=== PATIENT | male | born 1985 ===

== ENCOUNTER 2017-02-23 23:01 | Emergency (ER) | payer OTHER ==
[2017-02-23 23:29] LABS: #Eosinphils 0.2 thou/uL (0.0-0.7); #Lymphocytes 0.8 thou/uL (1.20-3.40); #Monocytes 0.9 thou/uL (0.11-0.59); #Neutrophils 8.1 thou/uL (1.40-6.50); %Basophils 0.5 % (0.0-1.0); %Lymphocytes 8.2 % (21.0-51.0); %Monocytes 8.9 % (0.0-10.0); %Neutrophils 80.4 % (42.0-75.0); Hemoglobin 9.7 g/dL (14.0-18.0); Mean Corpuscular HGB CONC 34.7 g/dL (32.0-36.0); Mean Corpuscular Hemoglobin 30.8 pg (27.0-31.0); Mean Corpuscular Volume 88.8 fl (80.0-94.0); Platelet Count 207 thou/uL (130-400); RBC Distribution Width 10.4 % (11.5-14.5); Red Blood Cell (RBC) Count 3.14 mill/uL (4.70-6.10); White Blood Cell (WBC) Count 10.1 thou/uL (4.8-10.8)
[2017-02-23] MEDS ORDERED: Acetaminophen 500 MG TAB ONE (23:35)
--- NOTE | 2017-02-23 23:35 | CT ---
HEAD CT WITHOUT CONTRAST 02/23/17 COMPARISON: None. HISTORY: Syncope and hypoglycemia. TECHNIQUE: Serial axial CT imaging at 5 mm intervals from vertex through skull base without contrast. FINDINGS: There is a focal area of soft tissue swelling in the left paranasal region and left supraorbital reg ion. There is no intracranial hemorrhage, midline shift, mass effect, or ventricular enlargement. Th e imaged paranasal sinuses and mastoid air cells are well aerated. There is no displaced calvarial f racture. IMPRESSION: Soft tissue swelling anteriorly. No intracranial hemorrhage or displaced calvarial fracture. POS: [facility]
[2017-02-23 23:43] LABS: ALT (SGPT) 45 U/L (8-55); AST (SGOT) 31 U/L (5-34); Albumin 3.3 g/dL (3.5-5.0); Alkaline Phosphatase 81 U/L (40-150); Anion Gap 16 mmol/L (10-20); BUN (Urea Nitrogen) 48 mg/dL (8.9-20.6); Bilirubin, Total 0.2 mg/dL (0.2-1.2); Calc. Creatinine Clearance 0 mL/min (70-130); Calcium 9.1 mg/dL (7.8-10.44); Carbon Dioxide 24 mmol/L (22-29); Chloride 106 mmol/L (98-107); Estimated GFR-MDRD 33; Globulin 3.7 g/dL (2.4-3.5); Potassium 4.3 mmol/L (3.5-5.1); Sodium 142 mmol/L (136-145)
[2017-02-23 23:44] LABS: Glucose 53 mg/dL (70-105)
[2017-02-23 23:45] LABS: CKMB 1.8 ng/mL (0-6.6); Troponin I Less than 0.010 ng/mL (< 0.028)
--- NOTE | 2017-02-23 23:59 | RAD ---
PORTABLE SEMIUPRIGHT FRONTAL CHEST RADIOGRAPH 02/23/17 COMPARISON: None. HISTORY: Syncope, hypoglycemia. FINDINGS: Heart and mediastinal contours are grossly unremarkable. No pneumothorax, pleural effusion, focal co nsolidation, or alveolar edema. There is a nonspecific nodular density projecting between the fourth and fifth ribs on the left medi ally. This density measures 1.3 cm in transverse dimension. This may signify a prominent first costo chondral junction, vascular prominence, or an underlying pulmonary nodule. Followup PA and lateral i maging of the chest is advised to exclude a pulmonary lesion. IMPRESSION: No acute findings. Nodular density in the left suprahilar region as detailed above. Code T POS: [facility]
[2017-02-24] MEDS ORDERED: Sodium Chloride 0.9% 1,000 ML ONE (00:13)
[2017-02-24 00:39] LABS: Bilirubin Negative (Negative); Blood, Urine Moderate (Negative); Clarity Clear (Clear); Glucose, Urine (Dipstick) Negative (Negative); Leukocyte Negative (Negative); Nitrite Negative (Negative); Protein, Urine (Dipstick) > or equal to 300 mg/dL (Neg-Trace); Urobilinogen 0.2 mg/dL (0.2-1.0)
[2017-02-24 00:45] LABS: RBC/HPF 0-3 HPF (0-3); WBC/HPF 0-3 HPF (0-3)
[2017-02-24 00:46] LABS: Bacteria/HPF None Seen HPF (None Seen); Squamous Epithelial None Seen HPF (0-3)
[2017-02-24 00:47] LABS: Amphetamine Not Detected (NotDetected); Barbiturates Screen Not Detected (NotDetected); Benzodiazepine Screen Not Detected (NotDetected); Cocaine Metabolite Screen Not Detected (NotDetected); Medtox Control Line Valid? VALID (VALID); Methadone Not Detected (NotDetected); Methamphetamine Not Detected (NotDetected); Opiate Screen Not Detected (NotDetected); Oxycodone Screen Not Detected (NotDetected); Phencyclidine (PCP) Not Detected (NotDetected); THC/Cannabinoid Screen Not Detected (NotDetected); Tricyclic Screen Detected (NotDetected)
== END 2017-02-24 01:10 ==
LOC: NAV ERS 23:01
DX: E10.649 Type 1 diabetes mellitus with hypoglycemia without coma (principal); E78.5 Hyperlipidemia, unspecified; I12.9 Hypertensive chronic kidney disease with stage 1 through stage 4 chronic kidney disease, or unspecified chronic kidney disease; N18.9 Chronic kidney disease, unspecified; F41.9 Anxiety disorder, unspecified; Z87.891 Personal history of nicotine dependence; Z86.73 Personal history of transient ischemic attack (TIA), and cerebral infarction without residual deficits; Z79.4 Long term (current) use of insulin; Z79.899 Other long term (current) drug therapy
CPT/HCPCS: 36416; 70450; 71010; 80053; 80306; 81003; 81015; 82553; 84443; 84484; 85025; 93005; 96360; J7050